=== PATIENT | female | born 1975 | race Two or more races ===

== ENCOUNTER 2022-02-04 06:10 | Day surgery (SDC) | payer MEDICAID ==
[2022-01-31 10:15] LABS: Basophils # (auto) 0 10 ^3/uL (0-0.2); Basophils % (auto) 0.6 % (0.0-2.0); Eosinophils # (auto) 0.1 10 ^3/uL (0-0.8); Eosinophils % (auto) 1.2 % (0.0-7.0); Hematocrit 38.6 % (36.0-46.0); Hemoglobin 13.3 g/dL (12.2-16.2); Lymphocytes # (auto) 1.6 10 ^3/uL (0.4-5.4); Lymphocytes % (auto) 20.5 % (10.0-50.0); Mean Corpuscular Hemoglobin 30.6 pg (28.0-32.0); Mean Corpuscular Hgb Conc. 34.5 g/dL (32.0-36.0); Mean Corpuscular Volume 88.7 fL (80.0-100.0); Monocytes # (auto) 0.5 10 ^3/uL (0-1.3); Monocytes % (auto) 7.1 % (0.0-12.0); Neutrophils # (auto) 5.4 10 ^3/uL (1.6-8.6); Neutrophils % (auto) 70.6 % (37.0-80.0); Nucleated Red Blood Cells % 0.1 %; Red Blood Cells 4.36 10^6/uL (4.0-5.20); Red Cell Distribution Width 12.7 % (11.8-14.3); White Blood Cell 7.7 10^3/uL (4.4-10.8)
[2022-01-31 10:59] LABS: Potassium 3.9 mmol/L (3.5-5.1)
[2022-01-31 11:10] LABS: Urine Bacteria NONE SEEN /hpf (None Seen); Urine Blood Negative /uL (Negative); Urine Specific Gravity 1.003 (1.001-1.035); Urine WBC <1 /hpf (0 - 5)
[2022-01-31 11:14] LABS: INR 0.95 (0.9-1.15); Partial Thromboplastin Time 28.2 sec (24.6-33.4)
[2022-01-31 11:18] LABS: Albumin 3.5 g/dL (3.4-5.0); BUN/Creatinine Ratio 7.7; Bilirubin, Total 0.3 mg/dL (0.2-1.0); Calcium 8.8 mg/dL (8.5-10.1); Total Protein 6.7 g/dL (6.4-8.2)
[~2022-02-04] VITALS: Ht 167.6 cm; Wt 71.7 kg
[~2022-02-04 06:10] MED LIST: ALBUAER3 IN; ATOR10TA52 PO; BENZ1TAB2 PO; CARB200T4 PO; CARI1CAP PO; DICY20TA PO; DOCU100T15 PO; FLUO1TAB12 PO; FLUO20TA34 PO; METH36TA PO; OXYB3.9D TD; OXYB5TAB61 PO; TOLT2CAP PO; TRAM50TA2 PO
[2022-02-04] MEDS ORDERED: SUCCINYLCHOLINE CHLORIDE 20 MG/ML 10ML VIAL IV ONE (06:49)
[2022-02-04] MEDS ORDERED: ROCURONIUM 10MG/ML 10ML VIAL IV ONE (06:49)
[2022-02-04] MEDS ORDERED: METOCLOPRAMIDE HCL 5MG/ml INJ 2ml VIAL IV PRN (07:00)
[2022-02-04] MEDS ORDERED: MORPHINE SULFATE 4 MG/ML SYR/VIAL IV PRN (07:00)
[2022-02-04] MEDS ORDERED: HYDROmorphone HCL 2 MG/ML VL/or syr IV PRN ×2 (07:00)
[2022-02-04] MEDS ORDERED: IOHEXOL 300 MG/ML 100ML BOTTLE IJ ONE (07:04)
[2022-02-04] MEDS ORDERED: PROPOFOL 10 MG/ML 20 ML IV ONE (07:07)
[2022-02-04] MEDS ORDERED: SODIUM CHLORIDE LOCK 10 ML ONE (07:07)
[2022-02-04] MEDS ORDERED: fentaNYL CITRATE 100 MCG/2 ML VL ONE (07:07)
[2022-02-04] MEDS ORDERED: DexAMETHasone SOD PHOS 10MG/1ML VIAL INJ ONE (07:07)
[2022-02-04] MEDS ORDERED: ONDANSETRON HCL 4 MG/2 ML VIAL ONE (07:07)
[2022-02-04] MEDS ORDERED: MIDAZOLAM HCL 2MG/2ML 2ml VIAL (1mg/ml) ONE (07:07)
[2022-02-04] MEDS ORDERED: LIDOCAINE 2% JELLY 11ml (GLYDO) ONE (07:35)
[2022-02-04] MEDS ORDERED: ceFAZolin 1GM/50ML 0 ML IV ONE (07:44)
[2022-02-04] MEDS ORDERED: CIPROFLOXACIN 400MG/200ML 200 ML IV ONE (07:45)
[2022-02-04 08:50] VITALS: BP 98/62
== END 2022-02-04 09:30 | disposition home or self-care (01) ==
LOC: SUR 06:10
PROVIDERS: ATTEND Urology
DX: N34.3 Urethral syndrome, unspecified (principal); J44.9 Chronic obstructive pulmonary disease, unspecified; F41.9 Anxiety disorder, unspecified; E78.5 Hyperlipidemia, unspecified; Z90.49 Acquired absence of other specified parts of digestive tract; F32.A Depression, unspecified; Z98.891 History of uterine scar from previous surgery; Z91.040 Latex allergy status; F17.290 Nicotine dependence, other tobacco product, uncomplicated; Z88.0 Allergy status to penicillin; Z88.1 Allergy status to other antibiotic agents; Z20.822 Contact with and (suspected) exposure to COVID-19
CPT/HCPCS: 36415; 52276; 80053; 81001; 81025; 84702; 85025; 85610; 85730; 87086; J0330; J0744; J1100; J2250; J2405; J2704; J3010; U0003; J0690

== ENCOUNTER 2022-07-31 12:53 | Day surgery (SDC) | payer MEDICAID ==
[2022-07-30 09:55] LABS: Basophils # (auto) 0.1 10 ^3/uL (0-0.2); Eosinophils # (auto) 0.1 10 ^3/uL (0-0.8); Eosinophils % (auto) 1.6 % (0.0-7.0); Hematocrit 38.7 % (36.0-46.0); Hemoglobin 13.4 g/dL (12.2-16.2); Lymphocytes # (auto) 2.5 10 ^3/uL (0.4-5.4); Lymphocytes % (auto) 35.6 % (10.0-50.0); Mean Corpuscular Hemoglobin 30.8 pg (28.0-32.0); Mean Corpuscular Hgb Conc. 34.6 g/dL (32.0-36.0); Mean Corpuscular Volume 88.8 fL (80.0-100.0); Monocytes # (auto) 0.5 10 ^3/uL (0-1.3); Monocytes % (auto) 7.3 % (0.0-12.0); Neutrophils # (auto) 3.9 10 ^3/uL (1.6-8.6); Neutrophils % (auto) 54.5 % (37.0-80.0); Nucleated Red Blood Cells % 0.1 %; Red Blood Cells 4.35 10^6/uL (4.0-5.20); Red Cell Distribution Width 12.6 % (11.8-14.3); White Blood Cell 7.1 10^3/uL (4.4-10.8)
[2022-07-30 10:26] LABS: INR 0.95 (0.9-1.15); Partial Thromboplastin Time 26.5 sec (24.6-33.4)
[2022-07-30 10:33] LABS: Potassium 3.9 mmol/L (3.5-5.1)
[2022-07-30 10:44] LABS: Albumin 3.5 g/dL (3.4-5.0); Bilirubin, Total 0.3 mg/dL (0.2-1.0); Calcium 9.1 mg/dL (8.5-10.1); Total Protein 7.1 g/dL (6.4-8.2)
[~2022-07-31] VITALS: Ht 167.6 cm; Wt 68.0 kg
[~2022-07-31 12:53] MED LIST changes: +CARB100S GT; -DOCU100T15 PO; -METH36TA PO; -OXYB3.9D TD; -OXYB5TAB61 PO
[2022-07-31] MEDS ORDERED: LIDOCAINE VISCOUS 2% 15ML UD ONE (14:24)
[2022-07-31] MEDS: MIDAZOLAM HCL 2MG/2ML 2ml VIAL (1mg/ml) ONE ×3 (15:26→15:34)
[2022-07-31] MEDS: diphenhdrAMINE HCL 50 MG/1 ML VL ONE ×2 (15:26→15:28)
[2022-07-31] MEDS: fentaNYL CITRATE 100 MCG/2 ML VL ONE ×3 (15:26→15:34)
[2022-07-31 16:20] VITALS: BP 122/71
== END 2022-07-31 16:30 | disposition home or self-care (01) ==
LOC: GI 12:53
PROVIDERS: ATTEND Internal Medicine Gastroenterology
DX: R11.2 Nausea with vomiting, unspecified (principal); R13.10 Dysphagia, unspecified; K21.00 Gastro-esophageal reflux disease with esophagitis, without bleeding; K44.9 Diaphragmatic hernia without obstruction or gangrene; K29.90 Gastroduodenitis, unspecified, without bleeding; Z20.822 Contact with and (suspected) exposure to COVID-19
CPT/HCPCS: 36415; 43239; 43450; 80053; 84702; 85025; 85610; 85730; J1200; J2250; J3010; U0003